=== PATIENT | male | born 1950 | race Hispanic/Latino ===

== ENCOUNTER 2017-09-17 07:47 | Day surgery (SDC) | payer MEDICARE ==
[2017-09-10 10:34] VITALS: BMI 25.0
[2017-09-17] MEDS ORDERED: Morphine 4 MG/ML VIAL IVP PRN (08:35)
[2017-09-17] MEDS ORDERED: Gentamicin 160 MG in Sodium Chloride 0.9% 100 ML IVPB ONE (08:44)
[2017-09-17] MEDS ORDERED: Lidocaine 2% Jelly (Uro-Jet) ONE (08:46)
[2017-09-17] MEDS ORDERED: Ciprofloxacin 400mg/200ml D5W 0 MG/0 ML BAG IVPB ONE (08:46)
[2017-09-17] MEDS ORDERED: cefTRIAXone IV 1 gm in Dextros 50 ML IVPB ONE (09:20)
[2017-09-17] MEDS ORDERED: Propofol 10 mg/ml Inj (20 ML) ONE (09:22)
[2017-09-17] MEDS ORDERED: Midazolam 2 MG/2 ML VIAL ONE (09:23)
[2017-09-17 11:32] VITALS: BP 125/79; PULSE 71; RESP 17; TEMP 98.1; O2SAT 99
--- NOTE | 2017-09-17 15:20 | OP ---
PROCEDURE DATE: 09/17/2017 PREOPERATIVE DIAGNOSIS: Elevated prostate-specific antigen of 3.65. POSTOPERATIVE DIAGNOSIS: Elevated prostate-specific antigen of 3.65. PROCEDURE: Transrectal ultrasound diagnostic, transrectal ultrasound guidance and prostatic biopsies. SURGEON: Nicohlas Ortiz MD DESCRIPTION OF PROCEDURE: The patient was interviewed in the holding area. He confirmed he has not taken any aspirin or NSAIDs for over a week. He was given postop instructions and told to call my office today or tomorrow for a followup visit in 1 week, at which time I will present him with results of the biopsy. He was told that in the unlikely event he gets high fever or chills or shakes or heavy bleeding, he is to call my office and/or if no immediate response, go directly to an emergency room. The patient was brought to the operating room, placed under anesthesia in lithotomy position, prepped and draped in usual fashion. The rectum was cleansed with Betadine. He was given intravenous gentamicin 160 mg and Rocephin 1 g IV piggyback. Prior to introducing the transducer, I did a rectal exam under anesthesia and the prostate was smooth and symmetrical without any specific nodules. The transducer was now introduced and diagnostic ultrasound revealed a 29 cm volume with 2 hypoechoic areas noted as well. We now proceeded to do prostate biopsies which was done using TRUS guidance. Six sextants were biopsied with 2 specimens per sextant. It should be mentioned that the hypoechoic areas were totally loose and compatible with cystic areas. We now maintained the transducer in place and applied some pressure to promote hemostasis and upon removal after 4 minutes, there was no active bleeding noted. The patient tolerated the procedure well. Nicholas Ortiz MD
== END 2017-09-17 10:59 | disposition home or self-care (01) ==
LOC: C.SDS 07:47
PROVIDERS: ATTEND Urology
DX: N41.0 Acute prostatitis (principal); N41.1 Chronic prostatitis; I10 Essential (primary) hypertension
CPT/HCPCS: 55700; 88305; 88342; J0696; J1580